=== PATIENT | female | born 1965 | race Caucasian/White ===

== ENCOUNTER 2022-06-07 15:05 | Emergency (ER) | payer OTHER ==
[2022-06-07] MEDS ORDERED: Sodium Chloride 0.9% 2.5 ML Syringe FLUSH PRN (15:19)
[2022-06-07] MEDS ORDERED: Sodium Chloride 0.9% 10 ML Syringe FLUSH PRN (15:19)
[2022-06-07 16:28] LABS: CARBON DIOXIDE,CO2 26.9 mmol/L (21.0-32.0); POTASSIUM,K 3.6 mmol/L (3.5-5.1)
[2022-06-07] MEDS ORDERED: Sulfamethoxazole/Trimethoprim 800-160 MG Tab PO ONE (16:40)
== END 2022-06-07 16:56 | disposition home or self-care (01) ==
LOC: MW.ED 15:05
DX: L03.319 Cellulitis of trunk, unspecified (principal); L02.219 Cutaneous abscess of trunk, unspecified
CPT/HCPCS: 36415; 80053; 83605; 85025; 87040; 87070; 87205; 99283; A9270; J3490

== ENCOUNTER 2022-08-16 08:41 | Emergency (ER) | payer SELFPAY ==
[2022-08-16 09:41] LABS: CORONAVIRUS COVID-19 NAA NEGATIVE (NEGATIVE); INFLUENZA A NAA NEGATIVE (NEGATIVE); INFLUENZA B NAA NEGATIVE (NEGATIVE)
== END 2022-08-16 10:51 | disposition home or self-care (01) ==
LOC: MW.ED 08:41
DX: J18.9 Pneumonia, unspecified organism (principal); Z72.0 Tobacco use; Z20.822 Contact with and (suspected) exposure to COVID-19
CPT/HCPCS: 0240U; 71046; 99283

== ENCOUNTER 2022-11-24 17:23 | Observation (INO) | payer SELFPAY ==
[2022-11-24] MEDS ORDERED: Sodium Chloride 0.9% 2,000 ML IV ONE (19:20)
[2022-11-24] MEDS ORDERED: Sodium Chloride 0.9% 2.5 ML Syringe FLUSH PRN (19:20)
[2022-11-24] MEDS ORDERED: Sodium Chloride 0.9% 10 ML Syringe FLUSH PRN (19:20)
[2022-11-24] MEDS ORDERED: Piperacillin/Tazobactam 4.5 GM in Sodium Chloride 0.9% 100 ML IV STA (19:20)
[2022-11-24 20:16] LABS: BILIRUBIN,URINE NEGATIVE (NEGATIVE); COLOR,URINE YELLOW; GLUCOSE,URINE NEGATIVE (NEGATIVE); KETONES,URINE NEGATIVE (NEGATIVE); LEUKOCYTE ESTERASE,URINE NEGATIVE (NEGATIVE); NITRITE,URINE NEGATIVE (NEGATIVE); OCCULT BLOOD,URINE MODERATE (NEGATIVE); PH,URINE 5.5 (5.0-8.0); PROTEIN,URINE NEGATIVE (NEGATIVE); UROBILINOGEN,URINE 0.2 EU/dL (<2.0)
[2022-11-24 20:23] LABS: APPEARANCE,URINE SLT CLOUDY
[2022-11-24 20:27] LABS: BACTERIA,URINE RARE (NEGATIVE); EPITHELIAL CELLS,URINE RARE (NONE-FEW); MUCUS,URINE LIGHT (NONE-MOD); WBC,URINE 0-1 (0-5/HPF)
[2022-11-24] MEDS ORDERED: VANCOmycin 1.5 GM/300 ML 1.5 GM in Premix Bag 1 BAG IV ONE (20:30)
[2022-11-24 21:18] LABS: LACTIC ACID 1.6 mmol/L (0.4-2.0)
[2022-11-24] MEDS ORDERED: diphenhydrAMINE 50 MG/ML SDV ONE (21:22)
[2022-11-24] MEDS ORDERED: diphenhydrAMINE 50 MG/ML SDV IVPUSH ONE (21:25)
[2022-11-24] MEDS ORDERED: Lidocaine 1% with EPINEPHrine 1:100,000 20 ML MDV INJECT ONE (21:26)
[2022-11-24 21:39] LABS: BASOPHILS PERCENT AUTO 0.2 % (0.0-1.5); EOSINOPHILS ABSOLUTE AUTO 0.2 K/uL (0.0-0.7); EOSINOPHILS PERCENT AUTO 1.3 % (0.0-7.0); HEMOGLOBIN 13.5 g/dL (12.0-16.0); LYMPHOCYTES ABSOLUTE AUTO 2.4 K/uL (0.6-2.4); MEAN CORPUSCULAR HGB CONC 32.9 g/dL (31.0-37.0); MEAN CORPUSCULAR VOLUME 84.9 fL (80.0-98.0); MONOCYTES ABSOLUTE AUTO 0.6 K/uL (0.0-0.8); NEUTROPHILS ABSOLUTE AUTO 9.5 K/uL (1.4-5.7); NEUTROPHILS PERCENT AUTO 74.5 % (48.0-80.0); NRBC ABSOLUTE 0 K/uL; PLATELET COUNT,PLT 233 K/uL (150-400); RED BLOOD CELL COUNT 4.83 M/uL (4.30-5.90); WHITE BLOOD CELL COUNT,WBC 12.72 K/uL (4.0-11.0)
[2022-11-24 22:00] LABS: A/G RATIO 0.8 (0.9-1.6); ALBUMIN 3.4 g/dL (3.4-5.0); BILIRUBIN TOTAL 0.2 mg/dL (0.2-1.0); C-REACTIVE PROTEIN 4.1 mg/dL (0.00-0.90); CALCIUM 9.1 mg/dL (8.5-10.1); CARBON DIOXIDE,CO2 24.7 mmol/L (21.0-32.0); CREATININE 0.8 mg/dL (0.6-1.0); EST CRCL DRUG DOSING (CG) 55.73 mL/min; POTASSIUM,K 3.6 mmol/L (3.5-5.1); PROTEIN TOTAL,TP 7.7 g/dL (6.4-8.2)
[2022-11-24 22:14] LABS: INR 0.94 (0.86-1.11)
[2022-11-24] MEDS ORDERED: Iopamidol 755 MG/ML 500 ML Multipack Bottle IVPUSH STA (23:28)
[2022-11-25] MEDS ORDERED: Clindamycin Phosphate in D5W 900 MG in Premix Bag 1 BAG IV ONE ×2 (00:28)
[2022-11-25] MEDS ORDERED: Ondansetron 4 MG/2 ML SDV IVPUSH PRN (00:51)
[2022-11-25] MEDS: HYDROmorphone 1 MG/ML Syringe IVPUSH PRN ×2 (02:21→12:23)
[2022-11-25] MEDS: Lactated Ringers 1,000 ML IV SCH ×2 (02:21→15:21)
[2022-11-25] MEDS ORDERED: Clindamycin Phosphate in D5W 600 MG in Premix Bag 1 BAG IV SCH ×2 (06:00)
[2022-11-25] MEDS ORDERED: Lidocaine 2% 5 ML SDV ONE (10:39)
[2022-11-25] MEDS ORDERED: Propofol 200 MG/20 ML SDV ONE (10:39)
[2022-11-25] MEDS ORDERED: Dexamethasone 4 MG/ML 5 ML MDV ONE (10:39)
[2022-11-25] MEDS ORDERED: Ondansetron 4 MG/2 ML SDV ONE (10:39)
[2022-11-25] MEDS ORDERED: fentaNYL 100 MCG/2 ML SDV ONE ×2 (10:39→11:25)
[2022-11-25] MEDS ORDERED: Bupivacaine 0.5% 30 ML SDV ONE (11:05)
[2022-11-25] MEDS ORDERED: Acetaminophen/oxyCODONE 325-5 MG Tab PO PRN (11:44)
[2022-11-25] MEDS ORDERED: Ketorolac 10 MG Tab PO PRN (11:45)
[2022-11-25] MEDS: Clindamycin Phosphate in D5W 600 MG in Premix Bag 1 BAG IV SCH ×6 (12:21→23:10)
[2022-11-25 14:37] LABS: HEMOGLOBIN A1C 6.2 %
[2022-11-26] MEDS: Clindamycin Phosphate in D5W 600 MG in Premix Bag 1 BAG IV SCH ×2 (05:40)
[2022-11-26 06:09] LABS: HEMATOCRIT 35.7 % (36.0-46.0); HEMOGLOBIN 11.4 g/dL (12.0-16.0); MEAN CORPUSCULAR HEMOGLOBIN 27.3 pg (27.0-32.0); MEAN CORPUSCULAR HGB CONC 31.9 g/dL (31.0-37.0); MEAN CORPUSCULAR VOLUME 85.6 fL (80.0-98.0); MEAN PLATELET VOLUME 10.9 fL (7.40-12.00); RED BLOOD CELL COUNT 4.17 M/uL (4.30-5.90); WHITE BLOOD CELL COUNT,WBC 13.2 K/uL (4.0-11.0)
[2022-11-26 06:40] LABS: HEMOGLOBIN A1C 6.1 %
== END 2022-11-26 10:45 | disposition home or self-care (01) ==
LOC: MW.ED 17:23 → MW.MS 11-25 00:25
PROVIDERS: ADMIT Surgery; ATTEND Surgery
DX: L02.215 Cutaneous abscess of perineum (principal); M79.3 Panniculitis, unspecified; F17.210 Nicotine dependence, cigarettes, uncomplicated; Z96.659 Presence of unspecified artificial knee joint; Z88.1 Allergy status to other antibiotic agents
CPT/HCPCS: 36415; 74177; 74177-26; 80053; 81001; 83036; 83605; 84145; 84484; 85025; 85027; 85610; 86140; 87040; 96361; 96365; 96366; 96375; 99284-25; 99285; A9270-GY; J1100; J1170; J1200; J2405; J2543; J2704; J3010; J3370; J3490; J7030; J7120; Q9967

== ENCOUNTER 2023-05-26 18:09 | Emergency (ER) | payer MEDICAID ==
[2023-05-26] MEDS ORDERED: Sodium Chloride 0.9% 10 ML Syringe FLUSH PRN (19:40)
[2023-05-26] MEDS ORDERED: Sodium Chloride 0.9% 2.5 ML Syringe FLUSH PRN (19:40)
[2023-05-26 20:30] LABS: BASOPHILS ABSOLUTE AUTO 0.04 K/uL (0.00-0.20); BASOPHILS PERCENT AUTO 0.4 % (0.0-1.0); EOSINOPHILS ABSOLUTE AUTO 0.18 K/uL (0.00-0.45); EOSINOPHILS PERCENT AUTO 1.6 % (0.0-6.0); HEMATOCRIT 44.2 % (37.0-47.0); HEMOGLOBIN 14.4 g/dL (12.0-16.0); IMMATURE GRAN ABSOLUTE AUTO 0.03 K/uL (0.00-0.05); IMMATURE GRAN PERCENT AUTO 0.3 % (0.0-0.4); LYMPHOCYTES ABSOLUTE AUTO 2.68 K/uL (1.00-4.80); LYMPHOCYTES PERCENT AUTO 23.6 % (24.0-44.0); MEAN CORPUSCULAR HEMOGLOBIN 28.1 pg (28.0-32.0); MEAN CORPUSCULAR HGB CONC 32.6 g/dL (32.0-36.0); MEAN CORPUSCULAR VOLUME 86.3 fL (83.0-99.0); MEAN PLATELET VOLUME 10.7 fL (9.4-12.3); MONOCYTES ABSOLUTE AUTO 0.59 K/uL (0.00-0.80); MONOCYTES PERCENT AUTO 5.2 % (0.0-8.0); NEUTROPHILS ABSOLUTE AUTO 7.85 K/uL (1.80-7.70); NEUTROPHILS PERCENT AUTO 68.9 % (41.0-71.0); PLATELET COUNT,PLT 285 K/uL (150-400); RED BLOOD CELL COUNT 5.12 M/uL (4.10-5.30); WHITE BLOOD CELL COUNT,WBC 11.37 K/uL (3.9-11.3)
[2023-05-26 20:46] LABS: INR < 0.93 (0.86-1.11)
[2023-05-26 21:05] LABS: A/G RATIO 0.8 (0.9-1.6); ALBUMIN 3.7 g/dL (3.4-5.0); BILIRUBIN TOTAL 0.2 mg/dL (0.2-1.0); CALCIUM 9.8 mg/dL (8.5-10.1); CARBON DIOXIDE,CO2 25.2 mmol/L (21.0-32.0); CREATININE 0.8 mg/dL (0.6-1.0); EST CRCL DRUG DOSING (CG) 55.06 mL/min; POTASSIUM,K 3.9 mmol/L (3.5-5.1); PROTEIN TOTAL,TP 8.2 g/dL (6.4-8.2)
[2023-05-26 21:07] LABS: CHOLESTEROL HDL 57 mg/dL (40-60); CHOLESTEROL TOTAL 277 mg/dL (50-200); HEMOGLOBIN A1C 6.1 %; TRIGLYCERIDES 159 mg/dL (0-200)
[2023-05-26] MEDS ORDERED: atorvaSTATin 40 MG Tab PO STA (23:00)
[2023-05-26] MEDS ORDERED: Iopamidol 755 MG/ML 500 ML Multipack Bottle IVPUSH STA (23:06)
[2023-05-27] MEDS ORDERED: Aspirin 81 MG Tab.EC PO STA (00:07)
== END 2023-05-27 00:10 | disposition home or self-care (01) ==
LOC: MW.ED 18:09
DX: I75.022 Atheroembolism of left lower extremity (principal); R03.0 Elevated blood-pressure reading, without diagnosis of hypertension; F17.210 Nicotine dependence, cigarettes, uncomplicated; Z79.82 Long term (current) use of aspirin; Z79.899 Other long term (current) drug therapy; Z88.0 Allergy status to penicillin; Z88.8 Allergy status to other drugs, medicaments and biological substances
CPT/HCPCS: 36415; 73630; 80053; 82465; 83036; 83718; 84478; 84484; 85025; 85610; 85730; 93005; 99284; A9270; J3490; 93010

== ENCOUNTER 2024-09-06 09:28 | Emergency (ER) | payer MEDICAID ==
[2024-09-06] MEDS: traMADol 50 MG Tab PO ONE (10:31)
== END 2024-09-06 10:32 | disposition home or self-care (01) ==
LOC: MW.ED 09:28
DX: H66.91 Otitis media, unspecified, right ear (principal); Z88.8 Allergy status to other drugs, medicaments and biological substances
CPT/HCPCS: 99282; A9270; 99283